=== PATIENT | female | born 1970 | race Caucasian/White ===

== ENCOUNTER → 2016-09-27 | Outpatient (CLI) | payer BC ==
[~2016-09-27] MED LIST: BENADRYL25 MG PO; DILAUDID1 MG/ML PO; TYLENOL-DPS650 MG PO; XARELTO15 MG PO; XARELTO20 MG PO
== END | disposition home or self-care (01) ==
LOC: RAD.S 09-24 10:00
DX: E04.2 Nontoxic multinodular goiter (principal)